=== PATIENT | female | born 1995 | race Caucasian/White ===

== ENCOUNTER 2022-07-26 08:48 | Emergency (ER) | payer OTHER, SELFPAY ==
[2022-07-26 08:53] VITALS: BP 150/93; PULSE 80; RESP 18; O2SAT 100; BMI 31.3
--- NOTE | 2022-07-26 08:56 | ED_ITS ---
HPI - Abdominal Pain General: Chief Complaint: Abdominal Pain Stated Complaint: abd pain Time Seen by Provider: 07/26/22 08:51 History of Present Illness: Patient presents to the ER with complaints of right upper quadrant abdominal pain. Patient states she has a known bad gallbladder and has an appointment on the with a surgeon in [facility]. This attack has been lasting for the last 1 hour. MD elicited complaint: abdominal pain Onset (ago): hour(s) (1 hour ago) Pain Consistency: constant and colicky Location: RUQ Severity: moderate Radiation: none Migration to: no migration Exacerbating factors: eating Relieving factors: nothing Context: history of similar episodes Associated Symptoms: Reports nausea and vomiting; Denies chills, dysuria and fever(s) Review of Systems General: Reports: 10 or more systems reviewed and unremarkable except in HPI and below Const: Denies: fever(s) or chills Eyes: Denies: change in vision or blurry vision ENMT: Denies: throat pain or odynophagia Card: Denies: chest pain, palpitations or irregular heart rhythm Resp: Denies: dyspnea, productive cough or non-productive cough GI: Reports: abdominal pain, nausea and vomiting : Denies: flank pain, difficulty voiding or dysuria Physical Exam Const: COMMON NORMALS: average body habitus, patient oriented x3, no limitations, healthy appearing, alert and well nourished HENMT: COMMON NORMALS: normocephalic, atraumatic, hearing grossly normal bilaterally, external ears normal, Normal external nose present and moist oral mucous membranes HEAD & SCALP: normocephalic and atraumatic NOSE: Normal external nose present EXTERNAL EAR: Yes external ears normal Eye: COMMON NORMALS: Equal, round and reactive pupils present, EOMs intact bilaterally, conjunctivae normal and no scleral icterus CONJUNCTIVA: Yes conjunctivae normal PUPIL: Yes Equal, round and reactive pupils present Neck/C-Spine: COMMON NORMALS: full ROM, no lymphadenopathy, supple, no meningeal signs, no JVD and Thyroid normal THYROID: Thyroid normal Lymph: LYMPHATIC: no lymphadenopathy noted Chest: COMMONS NORMALS: normal inspection of the chest and normal palpation of entire chest wall Resp: COMMON NORMALS: normal respiratory effort, No retractions, No use of accessory muscles and clear to auscultation bilaterally AUSCULTATION: clear to auscultation bilaterally Cardio: COMMON NORMALS: no JVD, regular rhythm, S1 normal heart sound present, S2 normal heart sound present, No gallops present (Cardio), No clicks present (Cardio) and No murmurs present (Cardio) RHYTHM: regular rhythm HEART SOUNDS: S1 normal heart sound present and S2 normal heart sound present GI: COMMON NORMALS: Normal to inspection, nondistended, normoactive bowel sounds present, Soft to palpation, No hepatosplenomegaly present and no masses PALPATION: Yes Soft to palpation, Yes Tenderness to palpation present (GI) Details: RUQ and Yes No hepatosplenomegaly present : COMMON NORMALS: Yes no CVA tenderness BLADDER/KIDNEY EXAM: Yes no CVA tenderness Back/Pelvis: COMMON NORMALS: no CVA tenderness Neuro: COMMON NORMALS: patient oriented x3 SENSORIUM/ORIENTATION: Yes alert MENINGEAL SIGNS: Yes no meningeal signs Course Vital Signs: Vital signs: Vital Signs Pulse Rate 82 07/26/22 08:59 Respiratory Rate 18 07/26/22 08:59 Blood Pressure 134/94 07/26/22 08:59 Pulse Oximetry 99 07/26/22 08:59 Oxygen Delivery Me thod Room Air 07/26/22 08:53 MDM - Abdominal Pain Medical Decision Making Patient presents to the ER with complaints of right upper quadrant abdominal p ain for the last 1 hour. Patient has known gallbladder dysfunction and already has appointment with a surgeon for this. Patient has been having increased nausea vomiting and abdominal pain. Patient was given Toradol and Zofran and improved the pain. Lab work was obtained which was essentially benign but showed a white count of 12.0. Patient was given another dose of 4 mg morphine IV and discharged home on [place]. Patient is to follow-up with the surgeon as previously requested. Differential Diagnosis Likely abdominal pain; Unlikely acute appendicitis, constipation, diverticulitis or pancreatitis Medical Records I reviewed the patient's medical records. Lab Data I reviewed the patient's lab results. 07/26/22 09:20 07/26/22 09:20 Labs/Radiology: Laboratory Results WBC 12.0 10^3/uL (4.0-10.0) H 07/26/22 09:20 RBC 4.95 10^6/uL (4.1-5.3) 07/26/22 09:20 Hgb 13.2 g/dL (11.5-15.3) 07/26/22 09:20 Hct 42.0 % (37.0-47.0) 07/26/22 09:20 MCV 84.8 fl (81-99) 07/26/22 09:20 MCH 26.7 pg (28.0-34.0) L 07/26/22 09:20 MCHC 31.4 g/dL (30.0-36.0) 07/26/22 09:20 RDW 13.2 % (12.1-15.1) 07/26/22 09:20 Plt Count 288 10^3/cmm (130-400) 07/26/22 09:20 MPV 9.9 fL (7.4-10.4) 07/26/22 09:20 Neut % (Auto) 75.2 % 07/26/22 09:20 Lymph % (Auto) 18.6 % 07/26/22 09:20 [place] % (Auto) 5.4 % 07/26/22 09:20 Eos % (Auto) 0.1 % 07/26/22 09:20 Baso % (Auto) 0.3 % 07/26/22 09:20 Neut # (Auto) 9.03 10^3/uL (1.8-7.7) H 07/26/22 09:20 Lymph # (Auto) 2.2 10^3/uL (0.8-4.8) 07/26/22 09:20 [place] # (Auto) 0.7 10^3/uL (0.2-0.9) 07/26/22 09:20 Eos # (Auto) 0.0 10^3/uL (0.0-0.8) 07/26/22 09:20 Baso # (Auto) 0.0 10^3/uL (0.0-0.1) 07/26/22 09:20 Nucleated RBC % (auto) 0 % 07/26/22 09:20 Nucleated RBCs # 0.0 /100WBC 07/26/22 09:20 Sodium 141 mmol/L (136-145) 07/26/22 09:20 Potassium 3.5 mmol/L (3.5-5.1) 07/26/22 09:20 Chloride 103 mmol/L (98-107) 07/26/22 09:20 Carbon Dioxide 26 mmol/L (22-29) 07/26/22 09:20 Anion Gap 15.5 (5-19) 07/26/22 09:20 BUN 8 mg/dL (6-20) 07/26/22 09:20 Creatinine 0.5 mg/dL (0.5-0.9) 07/26/22 09:20 GFR Calculation 151.6 mL/min (90-130) H 07/26/22 09:20 Glucose 105 mg/dL (65-115) 07/26/22 09:20 Calculated Osmolality 291 mOsm/kg (285-295) 07/26/22 09:20 Calcium 8.8 mg/dL (8.5-10.5) 07/26/22 09:20 Total Bilirubin 0.3 mg/dL (0.15-1.2) 07/26/22 09:20 AST 21 U/L (0-32) 07/26/22 09:20 ALT 17 U/L (0-33) 07/26/22 09:20 Alkaline Phosphatase 76 U/L (35-105) 07/26/22 09:20 Total Protein 7.2 g/dL (6.6-8.7) 07/26/22 09:20 Albumin 4.4 g/dL (3.5-5.2) 07/26/22 09:20 Globulin 2.8 g/dL (1.3-4.6) 07/26/22 09:20 Lipase 34 U/L (13-60) 07/26/22 09:20 HCG, Qual Negative (Negative) 07/26/22 09:44 Urine Color Yellow (Yellow) 07/26/22 09:45 Urine Appearance Clear (CLEAR) 07/26/22 09:45 Urine pH 6.5 (5-7) 07/26/22 09:45 Ur Specific [place] 1.020 (1.005-1.030) 07/26/22 09:45 Urine Protein Neg (Negative) 07/26/22 09:45 Urine Glucose (UA) Norm (Normal) 07/26/22 09:45 Urine Ketones Negative (Negative) 07/26/22 09:45 Urine Blood Neg (Negative) 07/26/22 09:45 Urine Nitrate Negative (Negative) 07/26/22 09:45 Urine Bilirubin Neg (Negative) 07/26/22 09:45 Urine Urobilinogen Norm mg/dL (Negative) 07/26/22 09:45 Ur Leukocyte Esterase Negative (Negative) 07/26/22 09:45 Discharge Plan Discharge Patient Disposition: Home Clinical Impression: Biliary colic, Nausea & vomiting Condition: Stable Prescriptions: New hydrocodone-acetaminophen 5-325 mg tablet 1 tab PO Q6H PRN (Reason: pain) Qty: 14 0RF ondansetron HCl 4 mg tablet 4 mg PO Q8H PRN (Reason: nausea and vomiting) Qty: 14 0RF Discharge Orders: Discharge ED (Routine); Ordered 07/26/22 Ordered By: Aron Eduardo Discharge Diet: Advance as tolerated Discharge Activity: Resume usual activity Patient Instructions: Opioid Safety, Pain Management, Biliary Colic (ED) Coding Level of Care Code ED [employer] Back Tender for Vianney Ibrahim
[2022-07-26 08:59] VITALS: BP 134/94; PULSE 82; RESP 18; O2SAT 99
[2022-07-26] MEDS: ketorolac 30 mg/mL INJ IVP (09:24)
[2022-07-26] MEDS: ondansetron 2 mg/ML SDV 2 mL 4 MG IVP (09:24)
[2022-07-26 09:46] LABS: Basophils % 0.3 %; Eosinophils % 0.1 %; Hemoglobin 13.2 g/dL (11.5-15.3); Lymphocytes # 2.2 10^3/uL (0.8-4.8); Lymphocytes % 18.6 %; Mean Corpuscular HGB Conc 31.4 g/dL (30.0-36.0); Mean Corpuscular Hemoglobin 26.7 pg (28.0-34.0); Mean Corpuscular Volume 84.8 fl (81-99); Mean Platelet Volume 9.9 fL (7.4-10.4); Monocytes # 0.7 10^3/uL (0.2-0.9); Monocytes % 5.4 %; Neutrophils # 9.03 10^3/uL (1.8-7.7); Neutrophils % 75.2 %; Nucleated Red Blood Cells % 0 %; Platelet Count 288 10^3/cmm (130-400); Red Blood Count 4.95 10^6/uL (4.1-5.3); Red Cell Distribution Width 13.2 % (12.1-15.1)
[2022-07-26] MEDS: sodium chloride 0.9% 1,000 ML 999 ML IV (09:50)
[2022-07-26 09:54] LABS: HCG Qualitative Urine. Negative (Negative)
[2022-07-26 09:55] LABS: Alanine Aminotransferase 17 U/L (0-33); Albumin Level 4.4 g/dL (3.5-5.2); Alkaline Phosphatase 76 U/L (35-105); Anion Gap 15.5 (5-19); Aspartate Amino Transferase 21 U/L (0-32); Blood Urea Nitrogen 8 mg/dL (6-20); Calcium 8.8 mg/dL (8.5-10.5); Carbon Dioxide 26 mmol/L (22-29); Chloride 103 mmol/L (98-107); Globulin 2.8 g/dL (1.3-4.6); Glomerular Filtration Rate 151.6 mL/min (90-130); Glucose 105 mg/dL (65-115); Lipase 34 U/L (13-60); Osmolality Calculated 291 mOsm/kg (285-295); Potassium 3.5 mmol/L (3.5-5.1); Sodium 141 mmol/L (136-145); Total Bilirubin 0.3 mg/dL (0.15-1.2); Total Protein 7.2 g/dL (6.6-8.7)
[2022-07-26 09:59] VITALS: BP 127/62; PULSE 77; RESP 16; O2SAT 99
[2022-07-26 10:03] LABS: Add Urine Microscopic? NO; Urine Appearance Clear (CLEAR); Urine Color Yellow (Yellow)
[2022-07-26 10:04] LABS: Bilirubin Urine Neg (Negative); Blood Urine Neg (Negative); Glucose Urine UA Norm (Normal); Ketones Urine Negative (Negative); Leukocyte Esterase Urine Negative (Negative); Nitrate Urine Negative (Negative); Protein Urine Neg (Negative); Urobilinogen Urine Norm (Negative); pH Urine 6.5 (5-7)
[2022-07-26 10:05] LABS: Charge for UA Resulting for Rev
[2022-07-26 10:09] VITALS: RESP 18; O2SAT 100
[2022-07-26] MEDS: morphine 4 mg/mL SDV 1 mL IVP (10:09)
--- NOTE | 2022-08-06 12:21 | DCPLANNER ---
TCM called patient due to no primary care physician - patient declines - patient does not live in the area.
== END 2022-07-26 10:21 | disposition home or self-care (01) ==
PROVIDERS: Emergency Provider Emergency Medicine
DX: K80.50 Calculus of bile duct without cholangitis or cholecystitis without obstruction (principal); R11.2 Nausea with vomiting, unspecified
CPT/HCPCS: 80053; 81003; 81025; 83690; 85025; 96374; 96375; 99284; J1885; J2270; J2405; J7030